=== PATIENT | male | born 1980 | race Caucasian/White ===

== ENCOUNTER 2018-03-15 13:36 | Inpatient (IN) | payer MEDICAID ==
[~2018-03-15] VITALS: Ht 170.2 cm; Wt 91.6 kg
[2018-03-15 14:19] LABS: BASOPHILS % (AUTO) 0.5 % (0.0-2.0); EOSINOPHILS % (AUTO) 0.1 % (1.0-6.0); HEMATOCRIT 49.3 % (41-53); HEMOGLOBIN 16.9 g/dL (13.5-17.5); LYMPHOCYTES # (AUTO) 1.6 K/uL (1.0-4.8); LYMPHOCYTES % (AUTO) 16.5 % (22.0-44.0); MEAN CORPUSCULAR HEMOGLOBIN 31.3 pg (26.0-34.0); MEAN CORPUSCULAR HGB CONC 34.3 G/dL (31.0-37.0); MEAN CORPUSCULAR VOLUME 92 fL (80-100); MONOCYTES # (AUTO) 0.6 K/uL (0.1-1.0); MONOCYTES % (AUTO) 6.2 % (2.0-9.0); NEUTROPHILS # (AUTO) 7.5 K/uL (1.8-7.7); NEUTROPHILS % (AUTO) 76.7 % (40.0-70.0); PLATELET COUNT (AUTO) 263 K/uL (150-450); RED BLOOD CELL COUNT(AUTO) 5.39 MIL/uL (4.50-5.90); RED CELL DISTRIBUTION WIDTH 13.5 % (11.5-14.5)
[2018-03-15 14:28] LABS: ANION GAP 7 mmol/L (8-16); CALCIUM, TOTAL 9.1 mg/dL (8.8-10.5); CARBON DIOXIDE 28 mmol/L (22-29); CHLORIDE 101 mmol/L (98-107); CREATININE 0.95 mg/dL (0.60-1.30); GLOMERULAR FILTR. RATE CALC > 60 mL/min (>60); GLUCOSE,RANDOM 110 mg/dL (70-110); POTASSIUM 3.8 mmol/L (3.5-5.1); SODIUM SERUM 136 mmol/L (136-145); UREA NITROGEN, BLOOD 11 mg/dL (7-18)
[2018-03-15 14:29] LABS: AMPHET/METH SCREEN,URINE NEGATIVE (NEGATIVE); BARBITURATE SCREEN, URINE NEGATIVE (NEGATIVE); BENZODIAZEPINES SCREEN,URINE NEGATIVE (NEGATIVE); CANNABINOID SCREEN,URINE NEGATIVE (NEGATIVE); COCAINE SCREEN,URINE NEGATIVE (NEGATIVE); METHADONE SCREEN, URINE NEGATIVE (NEGATIVE); OPIATE SCREEN,URINE NEGATIVE (NEGATIVE)
[2018-03-15 14:30] LABS: PHENCYCLIDINE SCREEN,URINE NEGATIVE (NEGATIVE)
[2018-03-15 14:34] LABS: ALANINE AMINOTRANSFERASE 29 U/L (12-78); ALKALINE PHOSPHATASE 74 U/L (46-116); ASPARTATE AMINOTRANSFERASE 19 U/L (15-37); BILIRUBIN,TOTAL 0.4 mg/dL (0.1-1.0); TOTAL PROTEIN, SERUM 7.9 g/dL (6.4-8.2)
[2018-03-15] MEDS ORDERED: HALOPERIDOL 5 MG TABLET PO ONE (15:00)
[2018-03-15] MEDS ORDERED: LORazepam 2 MG TABLET PO PRN (16:15)
[2018-03-15] MEDS ORDERED: HALOPERIDOL 5 MG TABLET PO PRN (16:15)
[2018-03-15] MEDS ORDERED: ZOLPIDEM TARTRATE 10 MG TABLET PO PRN (16:15)
[2018-03-15 22:14] VITALS: BP 147/77
[2018-03-15] MEDS ORDERED: NICOTINE 14 MG/24 HOUR PATCH TD PRN (22:15)
[2018-03-15] MEDS ORDERED: DOCUSATE SODIUM 100 MG CAPSULE PO PRN (22:15)
[2018-03-15] MEDS ORDERED: IBUPROFEN 400 MG TABLET PO PRN (22:15)
[2018-03-15] MEDS ORDERED: MAGNESIUM HYDROXIDE SUSPENSION 30 ML UDCUP PO PRN (22:15)
[2018-03-15] MEDS ORDERED: ALBUTEROL SULFATE HFA 90 MCG/PUFF 8 GM INHALER IH PRN (22:15)
[2018-03-15] MEDS ORDERED: ACETAMINOPHEN 325 MG TABLET PO PRN (22:15)
[2018-03-15] MEDS ORDERED: MAG HYDROX/AL HYDROX/SIMETH ES 30 ML SUSPENSION UDCUP PO PRN (22:15)
[2018-03-15] MEDS ORDERED: PETROLATUM,WHITE 71 GM JELLY TP PRN (22:15)
[2018-03-15] MEDS ORDERED: GuaiFENesin/D-METHORPHAN [SUGAR-FREE] 200-20MG/10 ML SYRUP UDCUP PO PRN (22:15)
[2018-03-15] MEDS ORDERED: ONDANSETRON HCL 4 MG TABLET PO PRN (22:15)
[2018-03-15] MEDS ORDERED: LOPERAMIDE HCL 2 MG CAPSULE PO PRN (22:15)
[2018-03-15] MEDS ORDERED: CloNIDine HCL 0.1 MG TABLET PO PRN (22:15)
[2018-03-16 06:44] LABS: HEMOGLOBIN A1C 5.8 % (4.5-6.2)
[2018-03-16 06:46] LABS: CHOL/HDL RATIO 6.8 (4.2-7.3); THYROID STIMULATING HORMONE 1.47 uIU/mL (0.36-3.74)
[2018-03-16 10:41] VITALS: BP 121/75
[2018-03-16] MEDS: RisperiDONE 2 MG TABLET PO SCH ×2 (12:29→19:13)
[2018-03-16 16:59] VITALS: BP 116/70
[2018-03-16] MEDS: BENZTROPINE MESYLATE 1 MG TABLET PO SCH (19:13)
[2018-03-17] MEDS: BENZTROPINE MESYLATE 1 MG TABLET PO SCH ×2 (08:33→17:23)
[2018-03-17] MEDS: RisperiDONE 2 MG TABLET PO SCH (08:33)
[2018-03-17 09:26] VITALS: BP 119/68
[2018-03-17 16:00] VITALS: BP 112/58
[2018-03-17] MEDS: RisperiDONE 3 MG TABLET PO SCH (17:23)
[2018-03-18 08:15] VITALS: BP 122/69
[2018-03-18] MEDS: RisperiDONE 3 MG TABLET PO SCH ×2 (08:19→17:04)
[2018-03-18] MEDS: BENZTROPINE MESYLATE 1 MG TABLET PO SCH ×2 (08:19→17:03)
[2018-03-18 17:20] VITALS: BP 113/74
[2018-03-19] MEDS: RisperiDONE 3 MG TABLET PO SCH ×2 (08:32→17:15)
[2018-03-19] MEDS: BENZTROPINE MESYLATE 1 MG TABLET PO SCH ×2 (08:33→17:16)
[2018-03-19 10:21] VITALS: BP 107/61
[2018-03-19 16:30] VITALS: BP 112/72
[2018-03-20 08:30] VITALS: BP 139/71
[2018-03-20] MEDS: RisperiDONE 3 MG TABLET PO SCH ×2 (09:42→16:40)
[2018-03-20] MEDS: BENZTROPINE MESYLATE 1 MG TABLET PO SCH ×2 (09:42→16:40)
[2018-03-20 20:14] VITALS: BP 101/55
[2018-03-21 08:30] VITALS: BP 125/79
[2018-03-21] MEDS: BENZTROPINE MESYLATE 1 MG TABLET PO SCH (09:10)
[2018-03-21] MEDS: RisperiDONE 3 MG TABLET PO SCH (09:10)
[2018-03-21] MEDS ORDERED: RISP3 PO (10:19)
[2018-03-21] MEDS ORDERED: BENZ1TAB10 PO (10:20)
== END 2018-03-21 14:52 | disposition home or self-care (01) | DRG 750 ==
LOC: EMS 13:39 → 3EI 21:30
PROVIDERS: ADMIT Psychiatry & Neurology Child & Adolescent Psychiatry; ATTEND Psychiatry & Neurology Psychiatry
DX: F25.0 Schizoaffective disorder, bipolar type (principal); Z59.0 Homelessness; E78.5 Hyperlipidemia, unspecified; F41.9 Anxiety disorder, unspecified; G47.00 Insomnia, unspecified; Z23 Encounter for immunization
CPT/HCPCS: 83036; 84443; 90686; G0480